=== PATIENT | female | born 1990 | race Caucasian/White ===

== ENCOUNTER 2022-04-23 17:17 | Emergency (ER) | payer OTHER ==
[~2022-04-23] VITALS: Ht 160 cm; Wt 90.7 kg
--- NOTE | 2022-04-23 17:37 | NUR ---
BIBS WITH C/C OF HEAVY VAGINAL BLEEDING SINCE Apr. REPORTS STARTING HER PERIOD 1ST WITH NORMAL MENSES. REPORTS CONTINUED TO BLEED TO TODAY WITH HEAVIER BLEEDING AND PASSING BLOOD CLOTS. PT SATURATED 2 PADS WITHIN LAST HOUR. PT WITH PICTURE OF 2 LARGE SIZE CLOTS. DENIES ANY PAIN, REPORTS MILD CRAMPING. DENIES ANY N/V, DIZZINESS. REPORTS NAGY AND SLIGHT LIGHT HEADED.
[2022-04-23 17:43] VITALS: BP_SYST 139
[2022-04-23 18:39] LABS: BASOPHILS % (AUTO) 0.2 % (0.0-2.0); EOSINOPHILS # (AUTO) 0.1 K/uL (0.0-0.4); EOSINOPHILS % (AUTO) 1.1 % (0.0-4.0); HEMATOCRIT 36.9 % (36-48); LYMPHOCYTES # (AUTO) 3.2 K/uL (1.0-5.5); MEAN CORPUSCULAR VOLUME 85 fL (79.0-98.0); MONOCYTES # (AUTO) 0.6 K/uL (0.0-1.0); MONOCYTES % (AUTO) 6.3 % (1.7-9.3); NEUTROPHILS # (AUTO) 5.6 K/uL (1.8-7.7); NEUTROPHILS % (AUTO) 58.4 % (40.0-70.0); PLATELET COUNT (AUTO) 289 K/uL (130-430); RED BLOOD CELL COUNT(AUTO) 4.35 MIL/uL (4.2-6.2); WHITE BLOOD COUNT (AUTO) 9.5 K/uL (4.8-10.8)
[2022-04-23 18:55] LABS: CREATININE 0.77 mg/dL (0.55-1.30); POTASSIUM 3.6 mmol/L (3.5-5.1)
[2022-04-23 19:01] LABS: ALBUMIN 3.6 g/dL (3.4-4.8); TOTAL BILIRUBIN 0.3 mg/dL (0.0-1.0)
[2022-04-23 20:24] LABS: HEMOGLOBIN 12.2 g/dL (12.0-16.0); MEAN CORPUSCULAR HEMOGLOBIN 29 pg (27-31); MEAN CORPUSCULAR HGB CONC 33 % (32-36)
--- NOTE | 2022-04-23 21:00 | NUR ---
ER at bedside examining patient.
--- NOTE | 2022-04-23 21:24 | NUR ---
BIBS WITH C/C OF HEAVY VAGINAL BLEEDING SINCE Apr. REPORTS STARTING HER PERIOD 1ST WITH NORMAL MENSES. REPORTS CONTINUED TO BLEED TO TODAY WITH HEAVIER BLEEDING AND PASSING BLOOD CLOTS. PT SATURATED 2 PADS WITHIN LAST HOUR. DENIES ANY PAIN, REPORTS MILD CRAMPING. DENIES ANY N/V, DIZZINESS. REPORTS NAGY AND SLIGHT LIGHT HEADED.
--- NOTE | 2022-04-23 23:01 | NUR ---
Patient given written and verbal discharge instructions and verbalizes understanding. ER MD discussed with patient the results and treatment provided. Patient in stable condition. ID arm band removed. Opportunity for questions provided and answered. Medication side effect fact sheet provided.
[2022-04-23 23:02] VITALS: BP_SYST 148
== END 2022-04-23 23:01 | disposition home or self-care (01) ==
LOC: SED 17:17
DX: N93.9 Abnormal uterine and vaginal bleeding, unspecified (principal); R42 Dizziness and giddiness; R53.1 Weakness; Z79.899 Other long term (current) drug therapy
CPT/HCPCS: 36415; 76856-TC; 80053; 81025; 84702; 85025; 86900; 86901; 99284